=== PATIENT | female | born 1960 | race Caucasian/White ===

== ENCOUNTER 2019-01-06 15:14 | Observation (INO) | payer OTHER ==
[2019-01-06] MEDS ORDERED: NS 1,000 ML IV ONE (16:09)
--- NOTE | 2019-01-06 16:09 | EDPHY ---
H & P Stated Complaint: LLQ ABD PAIN WORSE OVER LAST WEEK Time Seen by Provider: 01/06/19 16:08 HPI/ROS: CHIEF COMPLAINT: Left lower quadrant pain HISTORY OF PRESENT ILLNESS: The patient presents the ED with a week of worsening left lower quadrant pain. The patient has a history of diverticulosis but not diverticulitis. The patient has had some nausea, vomiting and pain in her right back. She denies symptoms of urinary frequency or urgency. The patient has had a history of a hysterectomy and hernia repair with mesh. The patient takes medications for attention deficit hyperactivity disorder and depression. The patient is not anticoagulated. She denies any melena or hematemesis. The patient reports that her pain is moderate in nature. REVIEW OF SYSTEMS: A comprehensive 10 point review of systems is otherwise negative aside from elements mentioned in the history of present illness. Source: Patient Exam Limitations: No limitations - Personal History Current Tetanus Diphtheria and Acellular Pertussis (TDAP): Yes - Medical/Surgical History Hx Asthma: No Hx Chronic Respiratory Disease: No Hx Diabetes: No Hx Cardiac Disease: No Hx Renal Disease: No Hx Cirrhosis: No Hx Alcoholism: No Hx HIV/AIDS: No Hx Splenectomy or Spleen Trauma: No Other PMH: HYSTERECTOMY HERNIA SURGERY - Social History Smoking Status: Never smoked - Physical Exam Exam: General Appearance: Alert, no distress Eyes: Pupils equal and round no pallor or injection ENT, Mouth: Mucous membranes moist Respiratory: There are no retractions, lungs are clear to auscultation Cardiovascular: Regular rate and rhythm Gastrointestinal: Tenderness to palpation left lower quadrant, normal bowel sounds, no guarding Neurological: 5/5 strength all 4 extremities Skin: Warm and dry, no rashes Musculoskeletal: Neck is supple nontender Extremities: symmetrical, full range of motion Constitutional: Initial Vital Signs Temperature (C) 37.1 C 01/06/19 15:18 Heart Rate 87 01/06/19 15:18 Respiratory Rate 18 01/06/19 15:18 Blood Pressure 114/88 H 01/06/19 15:18 O2 Sat (%) 96 01/06/19 15:18 O2 Delivery Mode Room Air Allergies/Adverse Reactions: morphine Allergy (Verified 01/06/19 15:59) Penicillins Allergy (Verified 01/06/19 15:18) Home Medications: Medication Instructions Recorded Sertraline HCl 01/06/19 Strattera 01/06/19 Medical Decision Making - Diagnostics Imaging Results: CT abdomen pelvis with IV contrast: Images reviewed by myself and discussed with radiologist Dr. Suárez. Impression: Sigmoid diverticulitis without perforation or abscess. ED Course/Re-evaluation: Patient presents to the ED with a one-week history of worsening left lower quadrant pain. She has a history of diverticulosis but not diverticulitis. She denies any fever, chills or vomiting. Patient was noted to be moderately tender in the left lower quadrant. The patient had an IV established. She received a L of normal saline. She was taken for stat CT scan of the abdomen pelvis which confirms sigmoid diverticulitis without evidence of perforation or abscess. I re-evaluated at 5:00 p.m.. Patient will be started on Levaquin and Flagyl. She was offered outpatient management however feels quite uncomfortable. She would like to be admitted for bowel rest and IV fluid rehydration. Consultation is made with the hospitalist service at 5:00 p.m.. She will be admitted by Dr. Busby. Differential Diagnosis: Differential diagnosis considered includes diverticulitis, perforation, abscess - Data Points Laboratory Results: Laboratory Results 01/06/19 16:15 01/06/19 16:15 01/06/19 01/06/19 01/06/19 16:20 16:15 16:15 WBC 12.81 10^3/uL H 10^3/uL (3.80-9.50) RBC 5.25 10^6/uL 10^6/uL (4.18-5.33) Hgb 15.5 g/dL g/dL (12.6-16.3) POC Hgb 16.0 gm/dL gm/dL (12.6-16.3) Hct 47.0 % % (38.0-47.0) POC Hct 47 % % (38-47) MCV 89.5 fL fL (81.5-99.8) MCH 29.5 pg pg (27.9-34.1) MCHC 33.0 g/dL g/dL (32.4-36.7) RDW 12.6 % % (11.5-15.2) Plt Count 235 10^3/uL 10^3/uL (150-400) MPV 10.3 fL fL (8.7-11.7) Neut % (Auto) 65.8 % % (39.3-74.2) Lymph % (Auto) 24.9 % % (15.0-45.0) [place] % (Auto) 7.2 % % (4.5-13.0) Eos % (Auto) 1.1 % % (0.6-7.6) Baso % (Auto) 0.6 % % (0.3-1.7) Nucleat RBC Rel Count 0.0 % % (0.0-0.2) Absolute Neuts (auto) 8.43 10^3/uL H 10^3/uL (1.70-6.50) Absolute Lymphs (auto) 3.19 10^3/uL H 10^3/uL (1.00-3.00) Absolute Monos (auto) 0.92 10^3/uL H 10^3/uL (0.30-0.80) Absolute Eos (auto) 0.14 10^3/uL 10^3/uL (0.03-0.40) Absolute Basos (auto) 0.08 10^3/uL 10^3/uL (0.02-0.10) Absolute Nucleated RBC 0.00 10^3/uL 10^3/uL (0-0.01) Immature Gran % 0.4 % % (0.0-1.1) Immature Gran # 0.05 10^3/uL 10^3/uL (0.00-0.10) POC Sodium 141 mEq/L mEq/L (135-145) Sodium 139 mEq/L mEq/L (135-145) POC Potassium 3.9 mEq/L mEq/L (3.3-5.0) Potassium 4.0 mEq/L mEq/L (3.5-5.2) POC Chloride 107 mEq/L mEq/L (97-110) Chloride 106 mEq/L mEq/L (97-110) Carbon Dioxide 20 mEq/l L mEq/l (22-31) POC Total CO2 21 mEq/L L mEq/L (22-31) Anion Gap 13 mEq/L mEq/L (6-14) POC BUN 11 mg/dL mg/dL (7-23) BUN 12 mg/dL mg/dL (7-23) Creatinine 0.7 mg/dL mg/dL (0.6-1.0) POC Creatinine 0.6 mg/dL mg/dL (0.6-1.0) Estimated GFR > 60 Glucose 98 mg/dL mg/dL (70-100) POC Glucose 99 mg/dL mg/dL (70-100) Calcium 10.3 mg/dL mg/dL (8.5-10.4) Medications Given: Discontinued Medications Sodium Chloride (Ns) 1,000 mls @ 0 mls/hr IV EDNOW ONE; Wide Open PRN Reason: Protocol Stop: 01/06/19 16:10 Last Admin: 01/06/19 16:20 Dose: 1,000 mls Point of Care Test Results: Chemistry 01/06/19 16:20 POC Sodium 141 mEq/L mEq/L (135-145) POC Potassium 3.9 mEq/L mEq/L (3.3-5.0) POC Chloride 107 mEq/L mEq/L (97-110) POC Total CO2 21 mEq/L L mEq/L (22-31) POC BUN 11 mg/dL mg/dL (7-23) POC Creatinine 0.6 mg/dL mg/dL (0.6-1.0) POC Glucose 99 mg/dL mg/dL (70-100) ISTAT H&H 01/06/19 16:20 POC Hgb 16.0 gm/dL gm/dL (12.6-16.3) POC Hct 47 % % (38-47) Departure - Departure Disposition: [facility] Inpatient Acute Clinical Impression: Diverticulitis Condition: Good Referrals: Maeve Soto MD [Primary Care Provider] - As per Instructions
[2019-01-06 16:32] LABS: PLATELET COUNT 235 10^3/uL (150-400)
[2019-01-06] MEDS ORDERED: IOPAMIDOL (ISOVUE-300) 100 ML BTL ONE (16:52)
--- NOTE | 2019-01-06 17:19 | PDCONSULT ---
Color Blender Note: Pt seen and examine with our COMMISSIONING SPECIALIST I agree with her A/P per her H&P 59 yo female being admitted for sigmoid diverticulitis. CT confirmed, no e/o perforation cont current abx NPO tonight #Sigmoid diverticulitis #Leukocytosis VSS NAD AAOX3 NO RESP DISTRESS LLQ PAIN
[2019-01-06] MEDS ORDERED: ONDANSETRON 4 MG/2 ML VIAL IVP PRN (17:49)
[2019-01-06] MEDS ORDERED: KETOROLAC 30 MG/1 ML SDV IVP PRN (17:51)
[2019-01-06] MEDS: HYDROmorphONE/DILAUDID 1 MG/ML INJ IVP PRN ×2 (18:38→20:47)
[2019-01-06] MEDS: oxyCODONE IR 5 MG TAB PO PRN ×2 (18:43→20:46)
[2019-01-06] MEDS: NS 1,000 ML IV SCH (18:48)
--- NOTE | 2019-01-06 19:05 | PDGENHP ---
History and Physical - Chief Complaint Left lower quadrant pain - History of Present Illness 59 y/o female w/hx of diverticulosis and ADD presents w/ 1 week of worsening left lower quadrant pain. Reports nausea, pain and decreased appetite. Denies CP, SOB, vomiting, dysuria, constipation or diarrhea. Last colonoscopy was in 2010 where she was diagnosed w/diverticulosis and this admission is her first flare of diverticulitis. She is being admitted for treatment and monitoring. History Information - Allergies/Home Medication List Allergies/Adverse Reactions: morphine Allergy (Verified 01/06/19 15:59) Penicillins Allergy (Verified 01/06/19 15:18) Home Medications: Atomoxetine HCl [Strattera] 18 mg PO DAILY 01/06/19 [Last Taken 01/05/19] Sertraline HCl [Zoloft 50mg (*)] 50 mg PO DAILY 01/06/19 [Last Taken 01/05/19] I have personally reviewed and updated: family history, medical history, social history, surgical history Past Medical History: Anxiety, ADD, Insomnia, Scoliosis - Surgical History Reports: hysterectomy Additional surgical history: Hernia repair w/mesh, ANA & BSO - Family History Positive for: CAD Additional family history: HLD, Depression, Emphysema - Social History Smoking Status: Never smoked Alcohol Use: None Drug Use: None Additional social history: Lives in [place]. 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 Review of Systems Review of Systems: ROS: 10pt was reviewed & negative except for what was stated in HPI & below Physical Exam Physical Exam: Lab data and imaging were reviewed. Case discussed w/admitting physician, Dr. Demario Busby. WBC: 12.81 H/H: 15.5/47.0 Plt count: 235 Na: 139 K: 4.0 Cl: 106 Co2: 20 BUN/Cr: 12/0.[address] w/contrast: Moderate to severe diverticulitis in the sigmoid colon w/o evidence for free intraperitoneal air or abscess. Small amount of free fluid is seen in the pelvis. Temp Pulse Resp BP Pulse Ox 36.9 C 80 16 135/83 H 97 01/06/19 18:33 01/06/19 18:33 01/06/19 18:33 01/06/19 18:33 01/06/19 18:33 Constitutional: no apparent distress, uncomfortable Eyes: PERRL, anicteric sclera, EOMI Ears, Nose, Mouth, Throat: moist mucous membranes, hearing normal, ears appear normal, no oral mucosal ulcers Cardiovascular: regular rate and rhythym, no murmur, rub, or gallop, No edema Peripheral Pulses: 2+: dorsalis-pedis (R), dorsalis-pedis (L) Respiratory: no respiratory distress, no rales or rhonchi, clear to auscultation Gastrointestinal: normoactive bowel sounds, tenderness (LLQ) Genitourinary: no bladder fullness, no bladder tenderness Skin: warm, normal color, no rashes or abrasions, no fluctuance, no induration, No mottled Musculoskeletal: full muscle strength, no muscle tenderness, normal joint ROM, no joint effusions Neurologic: AAOx3, sensation intact bilaterally, CN II-XII Intact Psychiatric: interacting appropriately, not anxious, not encephalopathic, thought process linear Lymph, Heme, Immunologic: no cervical LAD, no supraclavicular LAD Lab Data & Imaging Review 01/06/19 16:15 01/06/19 16:15 WBC 12.81 10^3/uL (3.80-9.50) H 01/06/19 16:15 RBC 5.25 10^6/uL (4.18-5.33) 01/06/19 16:15 Hgb 15.5 g/dL (12.6-16.3) 01/06/19 16:15 POC Hgb 16.0 gm/dL (12.6-16.3) 01/06/19 16:20 Hct 47.0 % (38.0-47.0) 01/06/19 16:15 POC Hct 47 % (38-47) 01/06/19 16:20 MCV 89.5 fL (81.5-99.8) 01/06/19 16:15 MCH 29.5 pg (27.9-34.1) 01/06/19 16:15 MCHC 33.0 g/dL (32.4-36.7) 01/06/19 16:15 RDW 12.6 % (11.5-15.2) 01/06/19 16:15 Plt Count 235 10^3/uL (150-400) 01/06/19 16:15 MPV 10.3 fL (8.7-11.7) 01/06/19 16:15 Neut % (Auto) 65.8 % (39.3-74.2) 01/06/19 16:15 Lymph % (Auto) 24.9 % (15.0-45.0) 01/06/19 16:15 [place] % (Auto) 7.2 % (4.5-13.0) 01/06/19 16:15 Eos % (Auto) 1.1 % (0.6-7.6) 01/06/19 16:15 Baso % (Auto) 0.6 % (0.3-1.7) 01/06/19 16:15 Nucleat RBC Rel Count 0.0 % (0.0-0.2) 01/06/19 16:15 Absolute Neuts (auto) 8.43 10^3/uL (1.70-6.50) H 01/06/19 16:15 Absolute Lymphs (auto) 3.19 10^3/uL (1.00-3.00) H 01/06/19 16:15 Absolute Monos (auto) 0.92 10^3/uL (0.30-0.80) H 01/06/19 16:15 Absolute Eos (auto) 0.14 10^3/uL (0.03-0.40) 01/06/19 16:15 Absolute Basos (auto) 0.08 10^3/uL (0.02-0.10) 01/06/19 16:15 Absolute Nucleated RBC 0.00 10^3/uL (0-0.01) 01/06/19 16:15 Immature Gran % 0.4 % (0.0-1.1) 01/06/19 16:15 Immature Gran # 0.05 10^3/uL (0.00-0.10) 01/06/19 16:15 POC Sodium 141 mEq/L (135-145) 01/06/19 16:20 Sodium 139 mEq/L (135-145) 01/06/19 16:15 POC Potassium 3.9 mEq/L (3.3-5.0) 01/06/19 16:20 Potassium 4.0 mEq/L (3.5-5.2) 01/06/19 16:15 POC Chloride 107 mEq/L (97-110) 01/06/19 16:20 Chloride 106 mEq/L (97-110) 01/06/19 16:15 Carbon Dioxide 20 mEq/l (22-31) L 01/06/19 16:15 POC Total CO2 21 mEq/L (22-31) L 01/06/19 16:20 Anion Gap 13 mEq/L (6-14) 01/06/19 16:15 POC BUN 11 mg/dL (7-23) 01/06/19 16:20 BUN 12 mg/dL (7-23) 01/06/19 16:15 Creatinine 0.7 mg/dL (0.6-1.0) 01/06/19 16:15 POC Creatinine 0.6 mg/dL (0.6-1.0) 01/06/19 16:20 Estimated GFR > 60 01/06/19 16:15 Glucose 98 mg/dL (70-100) 01/06/19 16:15 POC Glucose 99 mg/dL (70-100) 01/06/19 16:20 Calcium 10.3 mg/dL (8.5-10.4) 01/06/19 16:15 Assessment & Plan Assessment: 59 y/o female w/hx of diverticulosis presents w/ 1 week of worsening LLQ pain, subsequently w/mod-severe diverticulitis w/o abscess or perforation. Vitals signs are the followin/79, HR 93, Resp 18, Temp 37.1, 96% RA #Diverticulitis (Acute) -Received Levaquin + Flagyl in ED; cont abx -Bowel rest, NPO tonight. Reassess in AM w/possibility transitioning to clears diet -Pain management PO/IVP PRN -Received 1L NS in ED; cont IVF x 2 bags #Leukocytosis: Afebrile, elevated white count (12.81) . Recheck in AM. #ADD: Cont strattera #Depression: Cont zoloft Diet: NPO tonight VTE ppx: SCDs Code: Full Dispo: Admit to obs
[2019-01-06] MEDS: ONDANSETRON DISINTEGRATING 4 MG TAB PO PRN (20:48)
[2019-01-07] MEDS: ONDANSETRON DISINTEGRATING 4 MG TAB PO PRN ×3 (02:54→17:54)
[2019-01-07] MEDS: ACETAMINOPHEN 325 MG TAB PO PRN ×3 (02:56→16:15)
[2019-01-07] MEDS: NS 1,000 ML IV SCH (04:04)
--- NOTE | 2019-01-07 08:19 | HOSPPROG ---
Hospitalist Progress Note Assessment/Plan: #Sigmoid diverticulitis, uncomplicated: transition to Augmentin #Leukocytosis: resolved DC today Subjective: headache this morning Objective: Vital Signs Temp Pulse Resp BP Pulse Ox 36.7 C 73 16 104/65 97 01/07/19 08:00 01/07/19 08:00 01/07/19 08:00 01/07/19 08:00 01/07/19 08:00 Laboratory Results 01/07/19 04:25 01/06/19 01/07/19 01/08/19 05:59 05:59 05:59 Intake Total 2151 Output Total 725 500 Balance 1426 -500 - Time Spent With Patient Time Spent with Patient: greater than 35 minutes Time Spent with Patient: Greater than 35 minutes spent on this patients care, greater than 50% of time spent counseling, educating, and coordinating care regarding the above mentioned plan. - Physical Exam Constitutional: no apparent distress, other (overweight) Eyes: PERRL Ears, Nose, Mouth, Throat: moist mucous membranes Cardiovascular: regular rate and rhythym Respiratory: no respiratory distress Gastrointestinal: other (min LLQ TTP, +BS) Skin: warm Musculoskeletal: full muscle strength Neurologic: AAOx3, CN II-XII Intact Psychiatric: interacting appropriately ICD10 Worksheet Patient Problems: Problems Problem Status Onset Diverticulitis Acute
[2019-01-07] MEDS ORDERED: ATOMOXETINE HCL 18 MG PO SCH (09:00)
[2019-01-07] MEDS ORDERED: SERTRALINE HCL 50 MG TAB PO SCH (09:00)
[2019-01-07] MEDS: HYDROmorphONE/DILAUDID 1 MG/ML INJ IVP PRN (10:15)
[2019-01-07 16:11] VITALS: BP 113/73
--- NOTE | 2019-01-07 16:35 | ASMTLACE ---
ANGELINA Length of stay for Answers: 1 day current admission Acuity / Level of Answers: No Care: Did the patient have an inpatient admission? Comorbidities - select Answers: Other Notes: Diverticulosis all that apply # of Emergency department Answers: 1-2 visits in the last 6 months Social determinants Answers: Mental health diagnosis (anxiety, depression, pers onality disorders, etc.) Score: 6 Date Signed: 01/07/2019 04:34 PM Electronically Signed By:ИВАН Murray
--- NOTE | 2019-01-07 16:37 | ASMTCMCOM ---
CM Note CM Note Notes: Pt w hx diverticulitis in with diverticulitis. Pt medically stable for d/c home. Pt decline follow up PCP appointment with [facility] PCP Charles, reports she will schedule herself in January. Pt has transport home. No CM d/c needs identified. Date Signed: 01/07/2019 04:36 PM Electronically Signed By:ИВАН Murray
--- NOTE | 2019-01-07 16:40 | GDS ---
[f rep st] DISCHARGE SUMMARY DISCHARGE DIAGNOSES: 1. Uncomplicated sigmoid diverticulitis. 2. Abdominal pain. 3. Leukocytosis. HISTORY OF PRESENT ILLNESS: A 59-year-old female with a history of diverticulosis and ADD, presents with 1 week worsening left lower quadrant pain. She has had some intermittent nausea, decreased appe tite. She had a colonoscopy in 2010, that showed diverticulosis. HOSPITAL COURSE BY PROBLEM: 1. Acute sigmoid diverticulitis, uncomplicated: She is tolerating diet today with minimal pain. We will transition to Augmentin for 6 more days. 2. Leukocytosis, resolved with fluids and antibiotics. DISPOSITION: The patient is stable for discharge home. NEW MEDICATIONS: Zofran, Augmentin. Time spent on discharge, greater than 30 minutes at bedside counseling patient and coordinating disch arge. /[id number]/MODL
[2019-01-07] MEDS: oxyCODONE IR 5 MG TAB PO PRN (17:54)
== END 2019-01-07 19:05 | disposition home or self-care (01) ==
LOC: F3N 18:23
PROVIDERS: ADMIT Family Medicine; ATTEND Internal Medicine
DX: K57.32 Diverticulitis of large intestine without perforation or abscess without bleeding (principal); D72.829 Elevated white blood cell count, unspecified; F90.1 Attention-deficit hyperactivity disorder, predominantly hyperactive type; E86.9 Volume depletion, unspecified
CPT/HCPCS: 74177; 96361; 96365; 97161; 99285; G0378; 82435-PO; 82565-PO; 82947-PO; 84132-PO; 84295-PO; 84520-PO; 85014-ER; J1170; J1885; J1956; J2405; Q9967